=== PATIENT | female | born 1960 | race Caucasian/White ===

== ENCOUNTER 2020-10-27 06:29 | Day surgery (SDC) | payer BC ==
[2020-10-27] MEDS ORDERED: Ringers Lactate 1,000 ML IV ONE ×2 (07:20→09:04)
[2020-10-27] MEDS ORDERED: propofoL 200 MG/20 ML VIAL IV ONE (09:02)
--- NOTE | 2020-10-27 09:17 | ENDO RPT ---
[address], [address] EGD PROCEDURE REPORT EXAM DATE: 10/27/2020 PATIENT NAME: Joseluis Valerio MR#: [id number] BIRTHDATE: 1960 ATTENDING: Jama P[address] STATUS: outpatient COMPUTER AIDED DESIGN OPERATOR: Judit Chairez RN and Fatimah Roman INDICATIONS: The patient is a 60 yr old Female here for an EGD due to GERD and heartburn PROCEDURE PERFORMED: EGD with biopsy MEDICATIONS: Per Anesthesia. TOPICAL ANESTHETIC: none CONSENT: The patient understands the risks and benefits of the procedure and understands that these risks include, but are not limited to: sedation, allergic reaction, infection, perforation and/or bleeding. Alternative means of evaluation and treatment include, among others: physical exam, x-rays, and/or surgical intervention. The patient elects to proceed with this endoscopic procedure. DESCRIPTION OF PROCEDURE: During intra-op preparation period all mechanical medical equipment was checked for proper function. Hand hygiene and appropriate measures for infection prevention was taken. Procedure, possible complications, and alternatives including but not limited to the possibility of bleeding, perforation, tear, infection, sepsis, need for surgery, need for blood transfusion, and anesthesia related complications were explained to the patient. After the risks, benefits and alternatives of the procedure were thoroughly explained, Informed consent was verified, confirmed and timeout was successfully executed by the treatment team. The patient was placed in the left lateral position. The patient was anesthetized with topical anesthesia. Through the anesthetized oropharyngeal area, the scope was passed without any difficulty. The EG-[id number] ([id number]) endoscope was introduced through the mouth and advanced to the second portion of the duodenum. Retroflexed views revealed a small hiatal hernia. The gastroscope was then slowly withdrawn and removed. A small hiatal hernia was found. Multiple ( 12) small 3-8 mm sessile / pedunculated polyps were found in the body of the stomach. With jumbo forceps, a biopsy was obtained and sent to pathology. Duodenitis was found in the bulb of the duodenum. Multiple gastric biopsies were obtained and sent to pathology. ADVERSE EVENTS: There were no complications. IMPRESSIONS: 1. Small hiatal hernia 2. Multiple ( 12) small 3-8 mm sessile / pedunculated polyps in the body of the stomach, s/p biopsy 3. Duodenitis with specks of heme in the bulb of the duodenum, s/p gastric biopsies RECOMMENDATIONS: 1. await biopsy results 2. acid suppression therapy REPEAT EXAM: Jama P[address]rez Dr eSigned: Jama Pérez Dr 10/27/2020 9:16 AM cc: CPT CODES: ICD9 CODES: PATIENT NAME: Joseluis Valerio MR#: [id number]
--- NOTE | 2020-10-27 09:33 | ENDO RPT ---
[address], [address] COLONOSCOPY PROCEDURE REPORT EXAM DATE: 10/27/2020 PATIENT NAME: Joseluis Valerio MR #: [id number] BIRTHDATE: 1960 ATTENDING: Jama P[address]rez [address] STATUS: outpatient ROUGH PLANER TENDER: Judit Chairez RN and Fatimah Roman INDICATIONS: The patient is a 60 yr old Female here for a colonoscopy due to colon cancer screening and family history of colon polyps PROCEDURE PERFORMED: Colonoscopy MEDICATIONS: Per Anesthesia. ESTIMATED BLOOD LOSS: None CONSENT: The patient understands the risks and benefits of the procedure and understands that these risks include, but are not limited to: sedation, allergic reaction, infection, perforation and/or bleeding. Alternative means of evaluation and treatment include, among others: physical exam, x-rays, and/or surgical intervention. The patient elects to proceed with this endoscopic procedure. DESCRIPTION OF PROCEDURE: During intra-op preparation period all mechanical medical equipment was checked for proper function. Hand hygiene and appropriate measures for infection prevention was taken. Procedure, possible complications, alternatives including, but not limited to possibility of bleeding, perforation, tear, infection, sepsis, need for surgery, need for blood transfusion, were explained to the patient. After the risks, benefits and alternatives of the procedure were thoroughly explained, Informed consent was verified, confirmed and timeout was successfully executed by the treatment team. The patient was placed in the left lateral position. A digital rectal exam was performed and revealed external hemorrhoids and A digital rectal exam was performed and revealed several skin tags. After appropriate level of anesthesia, the scope was passed. The EG-[id number] ([id number]) and [id number] ([id number]) endoscope was introduced through the anus and advanced to the sigmoid colon. The quality of the prep was good. The instrument was then slowly withdrawn as the colon was fully examined. Scope withdrawal time was 4 minutes. COLON FINDINGS: A half circumferential fungating mass, measuring 5 X 3cm in size, was found in the sigmoid colon. Moderate sized internal and external hemorrhoids were found. Retroflexed views revealed small hemorrhoids. The scope was then completely withdrawn from the patient and the procedure terminated. ADVERSE EVENTS: There were no complications. IMPRESSIONS: 1. Half circumferential mass (somewhat pedunculated with broad base in tight turn, measuring 5 X 3cm in size, in the sigmoid colon - unable to intubate safely without trauma to mass 2. Moderate sized internal and external hemorrhoids RECOMMENDATIONS: 1. barium enema 2. CT chest / abdomen / pelvis 3. CEA level 4. consider advanced endoscopic attempt at resection, pending review of above testing RECALL: Return in 1 year(s) for Colonoscopy. Jama P[address]rez Dr eSigned: Jama Pérez Dr 10/27/2020 9:33 AM cc: CPT CODES: ICD9 CODES: 1. 455.5 External hemorrhoids with other complication 2. 455.9 Residual hemorrhoidal skin tags 3. 239.0 Neoplasm of unspecified nature of digestive system PATIENT NAME: Joseluis Valerio MR#: [id number]
[2020-10-27 10:30] VITALS: BP 152/62; TEMP 97.6
--- NOTE | 2020-10-27 12:17 | RAD REPORT ---
EXAM DESCRIPTION: CT - Chest Abdomen Pelvis W Cont - 10/27/2020 12:00 pm CLINICAL HISTORY: COLON MASS COMPARISON: DEXA, BONE DENSITY AXIAL SKELE dated 05/13/2020 TECHNIQUE: Approximately 100 mL nonionic IV contrast was administered to the patient. All CT scans are performed using dose optimization technique as appropriate and may include automated exposure control or mA/KV adjustment according to patient size. FINDINGS: The lungs are clear.No pleural or pericardial effusion.No intrathoracic adenopathy.Multi-v essel coronary artery disease. Left upper chest wall pacemaker. Aortic valvular calcifications. Hepatic steatosis. Gallbladder is within normal limits. No adrenal masses. Surgically absent spleen. There is a hypervascular appearing lesion in the the left kidney measuring 13 millimeters. There is a djacent scarring and fat necrosis. A left upper pole renal lesion has imaging features consistent wit h a cyst. There are other renal lesions which are likely benign as well. Atherosclerosis. Pancreas un remarkable. Hysterectomy. Question mass in the sigmoid colon with the centric wall thickening. There is also possibly a mass in the cecum versus a prominent ileocecal valve and/or retained stool. No bow el obstruction is identified. Enteric contrast is noted. No worrisome osseous finding. Sternotomy. IMPRESSION: 1. Possible sigmoid and cecal masses. Correlate with recent colonoscopy results. No evid ence of metastatic disease is identified. 2. Suspicious left renal lesion. Question prior partial nephrectomy or ablation. No comparisons are a vailable. Recommend urologic referral.
[2020-10-27 12:33] VITALS: O2SAT 99
== END 2020-10-27 11:55 | disposition home or self-care (01) ==
LOC: OR 06:29
PROVIDERS: ATTEND Internal Medicine Gastroenterology
PROC: 0DB68ZX Excision of Stomach, Via Natural or Artificial Opening Endoscopic, Diagnostic (ICD-10-PCS; 2020-10-27)
PROC: 0DJD8ZZ Inspection of Lower Intestinal Tract, Via Natural or Artificial Opening Endoscopic (ICD-10-PCS; principal; 2020-10-27 08:00)
PROC: 0D568ZZ Destruction of Stomach, Via Natural or Artificial Opening Endoscopic (ICD-10-PCS; 2020-10-27 08:00)
DX: Z12.11 Encounter for screening for malignant neoplasm of colon (principal); Z83.71 Family history of colonic polyps; K21.9 Gastro-esophageal reflux disease without esophagitis; R12 Heartburn; E11.9 Type 2 diabetes mellitus without complications; I10 Essential (primary) hypertension; K29.50 Unspecified chronic gastritis without bleeding; K31.7 Polyp of stomach and duodenum; K44.9 Diaphragmatic hernia without obstruction or gangrene; K29.80 Duodenitis without bleeding; Z20.822 Contact with and (suspected) exposure to COVID-19
CPT/HCPCS: 36415; 88312; 88305; 82378; 71260; 74177; 45378; 43270; 43239; U0003; Q9967; J2704; J7120 ×2